=== PATIENT | female | born 1935 | race Caucasian/White ===

== ENCOUNTER 2016-10-19 10:10 | Outpatient (CLI) | payer MEDICARE, OTHER ==
[2016-10-19 14:05] LABS: BASOPHILS % (AUTO) 0.8 %; EOSINOPHILS # (AUTO) 0.2 10^3/uL (0.0-0.7); EOSINOPHILS % (AUTO) 4.6 %; HCT - HEMATOCRIT 39.4 % (37.0-47.0); HGB - HEMOGLOBIN 13.2 g/dL (12.0-16.0); LYMPHOCYTES # (AUTO) 1.3 10^3/uL (1.5-3.5); LYMPHOCYTES % (AUTO) 32.5 %; MEAN CORPUSCULAR HEMOGLOBIN 28.8 pg (27.0-31.0); MEAN CORPUSCULAR HGB CONC 33.6 g/dL (32.0-36.0); MEAN CORPUSCULAR VOLUME 85.8 fL (81.0-99.0); MEAN PLATELET VOLUME 7.4 fL (7.9-10.8); MONOCYTES # (AUTO) 0.4 10^3/uL (0.0-1.0); MONOCYTES % (AUTO) 11.1 %; NEUTROPHILS # (AUTO) 2.1 10^3/uL (1.5-6.6); NUCLEATED RED BLOOD CELLS AUTO 0.1 /100WBC; RED BLOOD COUNT 4.59 10^6/uL (4.20-5.40); RED CELL DISTRIBUTION WIDTH 14.9 % (12.0-15.0)
[2016-10-19 14:18] LABS: ALBUMIN/GLOBULIN RATIO 1.6 (1.0-2.2); BILIRUBIN,TOTAL 0.6 mg/dL (0.2-1.0); BUN - BLOOD UREA NITROGEN 14 mg/dL (6-20); CALCIUM 9.4 mg/dL (8.5-10.3); CARBON DIOXIDE - CO2 32 mmol/L (21-32); CHLORIDE 103 mmol/L (101-111); CHOL/HDL RATIO 3.5 (<4.4); CHOLESTEROL 234 mg/dL; CREATININE 0.8 mg/dL (0.4-1.0); GFR - MDRD 69 (>89); GLUCOSE 85 mg/dL (70-100); HDL CHOLESTEROL 67 mg/dL; LDL/HDL RATIO 2.1 (<4.4); POTASSIUM 4.1 mmol/L (3.5-5.0); SODIUM 140 mmol/L (135-145); TRIGLYCERIDES 137 mg/dL; VLDL CHOLESTEROL 27 mg/dL
== END 2016-10-19 10:11 | disposition home or self-care (01) ==
LOC: LAB.WCP 10:10
PROVIDERS: ATTEND Physician Assistant Medical
DX: E78.5 Hyperlipidemia, unspecified (principal); C50.919 Malignant neoplasm of unspecified site of unspecified female breast
CPT/HCPCS: 36415; 80053; 80061; 85025

== ENCOUNTER 2016-10-27 15:12 | Outpatient (CLI) | payer MEDICARE, OTHER ==
--- NOTE | 2016-10-28 12:47 | Mammography Report ---
DIGITAL SCREENING MAMMOGRAM: 10/27/2016 COMPARISON: 03/15/2015, 02/27/2014, 03/09/2013, 03/21/2012, 03/13/2011, 03/11/2010, 09/30/2009, 04/02, 03/13/2008, 02/22/2007. TECHNIQUE: Routine CC and MLO projections were obtained of the breasts. Bilateral CC, exaggerated CC and MLO projections are obtained. FINDINGS: The breast tissue is heterogeneously dense. There are posttherapeutic changes in the right breast and axilla consistent with the history of breas t cancer. There are no new dominant masses, new architectural distortion or skin thickening or new honeycutt spicious microcalcifications. IMPRESSION: STABLE BENIGN FINDINGS. BIRADS CATEGORY 2-BENIGN FINDINGS. RECOMMENDATION: SUGGEST RETURN TO ROUTINE SCREENING IN 12 MONTHS. STANDARD QUALIFYING STATEMENTS 1. This examination was reviewed with the aid of Computer-Aided Detection (CAD). 2. A negative or benign imaging report should not delay biopsy if clinically suspicious findings are present. Consider surgical consultation if warranted. More than 5% of cancers are not identified by i ing. 3. Dense breasts may obscure an underlying neoplasm. JOB #: [id number] EXT JOB #:[id number]
== END 2016-10-27 15:13 | disposition home or self-care (01) ==
LOC: DI 15:12
PROVIDERS: ATTEND Physician Assistant Medical
DX: Z12.31 Encounter for screening mammogram for malignant neoplasm of breast (principal)
CPT/HCPCS: 77067

== ENCOUNTER 2017-01-01 09:43 | Outpatient (CLI) | payer MEDICARE, OTHER ==
--- NOTE | 2017-01-01 13:30 | DEXA Report ---
DEXA SCAN: 01/01/2017 CLINICAL INDICATION: Postmenopausal. TECHNIQUE: Dual energy x-ray absorptiometry (DXA) was performed on a [employer] system. Regions measured are the AP spine, femoral neck, and, if needed, forearm. COMPARISON: None. In accordance with the International Society for Clinical Densitometry (ISCD) guidelines, data from previous exams may be reanalyzed using current recommendations and techniques. This is done to allow a more accurate basis for comparison with the current study. FINDINGS LUMBAR SPINE DATA: REGION BMD (g/cm/cm) T-SCORE Z-SCORE L1 0.982 -1.2 1.1 L2 1.097 -0.9 1.5 L3 1.188 -0.1 2.3 L4 1.069 -1.1 1.3 TOTAL 1.088 -0.8 1.6 NOTE: All evaluable vertebrae are used for classification. HIP DATA: REGION BMD (g/cm/cm) T-SCORE Z-SCORE Neck 0.799 -1.7 0.8 TOTAL 0.841 -1.3 1.1 NOTE: The femoral neck or total proximal femur, whichever is lowest, is used for classification. IMPRESSION: THE WHO CLASSIFICATION BASED ON THE INTERNATIONAL REFERENCE STANDARD IS OSTEOPENIA. FRACTURE RISK IS INCREASED. RECOMMENDATION: Patients with diagnosis of osteoporosis or osteopenia should have regular bone mineral density assessment. For those eligible for Medicare, routine testing is allowed once every 2 years. Testing frequency can be increased for patients who have rapidly progressing disease or for those who are receiving medical therapy to restore bone mass. COMMENT: World Health Organization (WHO) definitions for osteoporosis and osteopenia: NORMAL BMD: T-score at -1.0 or higher, fracture risk is low. OSTEOPENIA BMD: T-score between -1.0 and -2.5, fracture risk is increased. OSTEOPOROSIS BMD: T-score at -2.5 or lower, fracture risk high. National Osteoporosis Foundation recommends: 1. Obtain adequate dietary calcium (at least 1200 mg per day) and vitamin D (400 -800 international units per day). 2. Participate, as appropriate, in regular weightbearing and muscle- strengthening exercise. 3. Avoid tobacco use and reduce alcohol and caffeine intake. 4. For more detailed information see the website at www.NOF.org. MTDD
== END 2017-01-01 09:44 | disposition home or self-care (01) ==
LOC: DI 09:43
PROVIDERS: ATTEND Physician Assistant Medical
DX: M85.88 Other specified disorders of bone density and structure, other site (principal)
CPT/HCPCS: 77080

== ENCOUNTER 2017-07-16 08:00 | Outpatient (CLI) | payer MEDICARE, OTHER ==
[2017-07-16 15:03] LABS: ALBUMIN 3.9 g/dL (3.2-5.5); ALBUMIN/GLOBULIN RATIO 1.3 (1.0-2.2); ALKALINE PHOSPHATASE 48 IU/L (42-121); ALT ALANINE AMINOTRANSFERASE 19 IU/L (10-60); AST ASPARTATE AMINOTRANSFERASE 29 IU/L (10-42); BUN - BLOOD UREA NITROGEN 16 mg/dL (6-20); CALCIUM 9.1 mg/dL (8.5-10.3); CARBON DIOXIDE - CO2 30 mmol/L (21-32); CHLORIDE 102 mmol/L (101-111); CHOL/HDL RATIO 3.4 (<4.4); CHOLESTEROL 240 mg/dL; CREATININE 0.7 mg/dL (0.4-1.0); GFR - MDRD 81 (>89); GLUCOSE 99 mg/dL (70-100); HDL CHOLESTEROL 70 mg/dL; LDL CHOLESTEROL,CALCULATED 153 mg/dL; LDL/HDL RATIO 2.2 (<4.4); SODIUM 141 mmol/L (135-145); TOTAL PROTEIN 6.9 g/dL (6.7-8.2); VLDL CHOLESTEROL 17 mg/dL
== END 2017-07-16 08:01 | disposition home or self-care (01) ==
LOC: LAB.WCP 08:00
PROVIDERS: ATTEND Physician Assistant Medical
DX: E78.5 Hyperlipidemia, unspecified (principal)
CPT/HCPCS: 36415; 80053; 80061; 83721

== ENCOUNTER 2017-10-29 10:59 | Outpatient (CLI) | payer MEDICARE, OTHER ==
--- NOTE | 2017-11-01 10:00 | Mammography Report ---
Reason: SCREENING MAMMO Procedure Date: 10/29/2017 Accession Number: [id number] / [id number] Procedure: AARON - Screening Mammo Dig Bilat CPT Code: FULL RESULT: EXAM: Screening Mammo Dig Bilat DATE: 10/29/2017 11:35 AM CLINICAL HISTORY: 82-year-old female with history of right breast cancer status post lumpectomy and chemoradiation. TECHNIQUE: Bilateral CC and MLO views were obtained. COMPARISON: 10/27/2016, 03/15/2015, 02/27/2014, 03/09/2013. FINDINGS: The breasts demonstrate heterogeneously dense fibroglandular parenchyma bilaterally. Postsurgical and posttreatment changes are seen in the right breast are stable. No suspicious masses, clustered microcalcifications, or regions of architectural distortion are identified. IMPRESSION: Benign findings RECOMMENDATION: Routine annual screening unless otherwise clinically indicated. BIRADS CATEGORY 2: Benign findings STANDARD QUALIFYING STATEMENTS: 1. This examination was not reviewed with the aid of Computer-Aided Detection (CAD). 2. A negative or benign imaging report should not delay biopsy if clinically suspicious findings are present. Consider surgical consultation if warrented. More than 5% of cancers are not identified by imaging. 3. Dense breasts may obscure an underlying neoplasm.
== END 2017-10-29 11:00 | disposition home or self-care (01) ==
LOC: DI 10:59
PROVIDERS: ATTEND Radiology Diagnostic Radiology
DX: Z12.31 Encounter for screening mammogram for malignant neoplasm of breast (principal); Z08 Encounter for follow-up examination after completed treatment for malignant neoplasm; Z85.3 Personal history of malignant neoplasm of breast
CPT/HCPCS: 77067

== ENCOUNTER 2018-07-13 09:00 | Outpatient (CLI) | payer MEDICARE, OTHER ==
[2018-07-13 12:39] LABS: BASOPHILS % (AUTO) 0.8 %; EOSINOPHILS # (AUTO) 0.1 10^3/uL (0.0-0.7); EOSINOPHILS % (AUTO) 1.6 %; HGB - HEMOGLOBIN 13.5 g/dL (12.0-16.0); LYMPHOCYTES # (AUTO) 1.3 10^3/uL (1.5-3.5); LYMPHOCYTES % (AUTO) 36.4 %; MEAN CORPUSCULAR HEMOGLOBIN 28.5 pg (27.0-31.0); MEAN CORPUSCULAR HGB CONC 33.3 g/dL (32.0-36.0); MEAN CORPUSCULAR VOLUME 85.6 fL (81.0-99.0); MEAN PLATELET VOLUME 7.6 fL (7.9-10.8); MONOCYTES # (AUTO) 0.4 10^3/uL (0.0-1.0); MONOCYTES % (AUTO) 10.7 %; NEUTROPHILS # (AUTO) 1.8 10^3/uL (1.5-6.6); NEUTROPHILS % (AUTO) 50.5 %; PLT - PLATELET COUNT 151 10^3/uL (130-450); RED BLOOD COUNT 4.73 10^6/uL (4.20-5.40); RED CELL DISTRIBUTION WIDTH 14.5 % (12.0-15.0); WHITE BLOOD COUNT 3.5 x10^3/uL (4.8-10.8)
[2018-07-13 12:42] LABS: ALBUMIN 4.3 g/dL (3.2-5.5); ALBUMIN/GLOBULIN RATIO 1.7 (1.0-2.2); ALKALINE PHOSPHATASE 48 IU/L (42-121); ALT ALANINE AMINOTRANSFERASE 14 IU/L (10-60); AST ASPARTATE AMINOTRANSFERASE 28 IU/L (10-42); BILIRUBIN,TOTAL 0.6 mg/dL (0.2-1.0); BUN - BLOOD UREA NITROGEN 15 mg/dL (6-20); CALCIUM 9.3 mg/dL (8.5-10.3); CARBON DIOXIDE - CO2 29 mmol/L (21-32); CHLORIDE 102 mmol/L (101-111); CHOLESTEROL 227 mg/dL; CREATININE 0.9 mg/dL (0.4-1.0); GFR - MDRD 60 (>89); GLUCOSE 87 mg/dL (70-100); HDL CHOLESTEROL 75 mg/dL; LDL CHOLESTEROL,CALCULATED 129 mg/dL; LDL/HDL RATIO 1.7 (<4.4); SODIUM 138 mmol/L (135-145); TOTAL PROTEIN 6.8 g/dL (6.7-8.2); VLDL CHOLESTEROL 23 mg/dL
== END 2018-07-13 09:01 | disposition home or self-care (01) ==
LOC: LAB.WCP 09:00
PROVIDERS: ATTEND Physician Assistant Medical
DX: M81.0 Age-related osteoporosis without current pathological fracture (principal); M89.9 Disorder of bone, unspecified; E78.5 Hyperlipidemia, unspecified; C50.919 Malignant neoplasm of unspecified site of unspecified female breast
CPT/HCPCS: 36415; 80053; 80061; 83721; 84443; 85025

== ENCOUNTER 2018-11-02 09:57 | Outpatient (CLI) | payer MEDICARE, OTHER ==
--- NOTE | 2018-11-03 09:50 | Mammography Report ---
Reason: ROUTINE MAMMO Procedure Date: 11/02/2018 Accession Number: [id number] / [id number] Procedure: AARON - Screening Mammo w/Daniel CPT Code: FULL RESULT: EXAM: Screening Mammo w/Daniel DATE: 11/02/2018 10:45 AM CLINICAL HISTORY: Screening encounter. Personal history of breast cancer status post right breast lumpectomy in 2008. History of hormone use, 1970 10/10/2008. TECHNIQUE: (B) - Bilateral CC and MLO views were obtained. Right laterally exaggerated view was obtained. COMPARISON: 10/29/2017 through 02/27/2014. PARENCHYMAL PATTERN: (D) - The breast(s) demonstrate(s) heterogeneously dense fibroglandular parenchyma. FINDINGS: Postsurgical changes are seen in the right breast without concerning interval change, typically benign. There are no suspicious masses, calcifications, or areas of distortion. IMPRESSION: Benign findings. BI-RADS category 2. RECOMMENDATION: (ANNUAL) - Recommend routine annual screening mammography. BI-RADS CATEGORY: (2) - Benign Findings. STANDARD QUALIFYING STATEMENTS: 1. This examination was not reviewed with the aid of Computer-Aided Detection (CAD). 2. A negative or benign imaging report should not preclude biopsy if clinically suspicious findings are present. 3. Dense breasts may obscure an underlying neoplasm. 4. This examination was reviewed with the aid of 3D breast imaging (tomosynthesis).
== END 2018-11-02 09:58 | disposition home or self-care (01) ==
LOC: DI 09:57
DX: Z12.31 Encounter for screening mammogram for malignant neoplasm of breast (principal); Z08 Encounter for follow-up examination after completed treatment for malignant neoplasm; Z85.3 Personal history of malignant neoplasm of breast
CPT/HCPCS: 77063; 77067

== ENCOUNTER 2019-01-03 10:45 | Outpatient (CLI) | payer MEDICARE, OTHER ==
--- NOTE | 2019-01-09 12:03 | DEXA Report ---
Reason: BONE DISORDER Procedure Date: 01/03/2019 Accession Number: [id number] / [id number] Procedure: DEX - Dexa Spine and/or Hip CPT Code: Final Report FULL RESULT: EXAM: Dexa Spine and/or Hip DATE: 01/03/2019 11:22 AM CLINICAL HISTORY: BONE DISORDER. OSTEOPENIA. TECHNIQUE: Dual energy x-ray absorptiometry (DXA) was performed on a [employer] System. Regions measured are the AP Spine, femoral neck, and if needed forearm. COMPARISON: 01/01/2017. In accordance with the International Society for Clinical Densitometry (ISCD) guidelines, data from previous exams may be reanalyzed using current recommendations and techniques. This is done to allow a more accurate basis for comparison with the current study. FINDINGS: The data for the lumbar spine is as follows: BMD (g/cm/cm) T-SCORE Z-SCORE REGION L1 0.918 -1.8 0.6 L2 1.239 0.3 2.7 L3 L4 1.098 -0.9 1.6 TOTAL 1.086 -0.7 1.7 NOTE: All evaluable vertebrae are used for classification The data for the hip is as follows: BMD (g/cm/cm) T-SCORE Z-SCORE REGION Neck 0.823 -1.5 1.0 TOTAL 0.837 -1.4 1.1 NOTE: The femoral neck or total proximal femur, whichever is lowest, is used for classification. DXA RESULTS SUMMARY: Spine SCAN DATE AGE BMD CHANGE VS CHANGE VS PREVIOUS PREVIOUS % [birth year]2019 [age] 1.086 0.032* 3.0* 01[birth year]01/2017 [age] 1[age]054 * Denotes significant change at the 95% confidence level. Denotes dissimilar scan types or analysis methods. DXA RESULTS SUMMARY: Hip SCAN DATE AGE BMD CHANGE VS CHANGE VS PREVIOUS PREVIOUS % [birth year]2019 [age] 0.837 -0.004 -0.5 01/01/2017 [age] 0.841 * Denotes significant change at the 95% confidence level. Denotes dissimilar scan types or analysis methods. IMPRESSION: 1. THE WHO CLASSIFICATION BASED ON THE INTERNATIONAL REFERENCE STANDARD IS OSTEOPENIA, REFERENCE HIP NECK RESULTS. THE FRACTURE RISK IS INCREASED. 2. THERE MAY BE A STATISTICALLY SIGNIFICANT IMPROVEMENT IN BONE MARROW DENSITY SINCE THE PRIOR EXAM, REFERENCE SPINE RESULTS. RECOMMENDATION: Patients with diagnosis of osteoporosis or osteopenia should have regular bone mineral density assessment. For those eligible for Medicare, routine testing is allowed once every 2 years. Testing frequency can be increased for patients who have rapidly progressing disease or for those who are receiving medical therapy to restore bone mass. COMMENT: World Health Organization (WHO) definitions for osteoporosis and osteopenia: NORMAL BMD: T-score at -1.0 or higher, fracture risk is low OSTEOPENIA BMD: T-score between -1.0 and -2.5, fracture risk is increased. OSTEOPOROSIS BMD: T-score at -2.5 or lower, fracture risk is high. National Osteoporosis Foundation recommends: 1. Obtain adequate dietary calcium (at least 1200 mg per day) and vitamin D (400-800 international units per day). 2. Participate, as appropriate, in regular weightbearing and muscle-strengthening exercise. 3. Avoid tobacco use and reduce alcohol and caffeine intake. 4. For more detailed information see the website at www.NOF.org.
== END 2019-01-03 10:46 | disposition home or self-care (01) ==
LOC: DI 10:45
PROVIDERS: ATTEND Physician Assistant Medical
DX: M85.88 Other specified disorders of bone density and structure, other site (principal)
CPT/HCPCS: 77080

== ENCOUNTER 2019-11-30 07:05 | Outpatient (CLI) | payer MEDICARE, OTHER ==
[2019-11-30 12:07] LABS: ALBUMIN/GLOBULIN RATIO 1.5 (1.0-2.2); ALKALINE PHOSPHATASE 53 IU/L (42-121); ALT ALANINE AMINOTRANSFERASE 11 IU/L (10-60); AST ASPARTATE AMINOTRANSFERASE 19 IU/L (10-42); BILIRUBIN,TOTAL 0.7 mg/dL (0.2-1.0); BUN - BLOOD UREA NITROGEN 15 mg/dL (6-20); CALCIUM 9.4 mg/dL (8.5-10.3); CARBON DIOXIDE - CO2 30 mmol/L (21-32); CHLORIDE 99 mmol/L (101-111); CHOL/HDL RATIO 2.8 (<4.4); CHOLESTEROL 195 mg/dL; CREATININE 0.8 mg/dL (0.4-1.0); GLUCOSE 89 mg/dL (70-100); HDL CHOLESTEROL 69 mg/dL; LDL CHOLESTEROL,CALCULATED 112 mg/dL; LDL/HDL RATIO 1.6 (<4.4); SODIUM 140 mmol/L (135-145); TOTAL PROTEIN 6.7 g/dL (6.7-8.2); VLDL CHOLESTEROL 14 mg/dL
[2019-11-30 12:15] LABS: BASOPHILS % (AUTO) 1.1 %; EOSINOPHILS # (AUTO) 0.1 10^3/uL (0.0-0.7); EOSINOPHILS % (AUTO) 3.4 %; HGB - HEMOGLOBIN 12.7 g/dL (12.0-16.0); LYMPHOCYTES # (AUTO) 1.2 10^3/uL (1.5-3.5); LYMPHOCYTES % (AUTO) 32.9 %; MEAN CORPUSCULAR HEMOGLOBIN 27.7 pg (27.0-31.0); MEAN CORPUSCULAR HGB CONC 31.5 g/dL (32.0-36.0); MEAN CORPUSCULAR VOLUME 87.8 fL (81.0-99.0); MEAN PLATELET VOLUME 9.3 fL (7.9-10.8); MONOCYTES # (AUTO) 0.3 10^3/uL (0.0-1.0); MONOCYTES % (AUTO) 9.1 %; NEUTROPHILS # (AUTO) 1.9 10^3/uL (1.5-6.6); NEUTROPHILS % (AUTO) 53.2 %; PLT - PLATELET COUNT 131 10^3/uL (130-450); RED BLOOD COUNT 4.59 10^6/uL (4.20-5.40); RED CELL DISTRIBUTION WIDTH 14.1 % (12.0-15.0); WHITE BLOOD COUNT 3.5 x10^3/uL (4.8-10.8)
== END 2019-11-30 07:06 | disposition home or self-care (01) ==
LOC: LAB.WCP 07:05
PROVIDERS: ATTEND Physician Assistant Medical
DX: E78.5 Hyperlipidemia, unspecified (principal)
CPT/HCPCS: 36415; 80053; 80061; 83721; 84443; 85025

== ENCOUNTER 2019-12-22 12:48 | Outpatient (CLI) | payer MEDICARE, OTHER ==
--- NOTE | 2019-12-22 13:53 | Ultrasound Report ---
PROCEDURE: Head or Neck Soft Tissue INDICATIONS: JAW ANOMALY TECHNIQUE: Real time scanning was performed of the neck region of interest, with image documentation . COMPARISON: None. FINDINGS: No soft tissue neck abnormality seen bilaterally. No enlarged lymph nodes identified in th e region of clinical interest. No soft tissue edema or fluid collections identified in the area of cl inical interest. IMPRESSION: No sonographic abnormality identified in the area of clinical interest at the level of the right subm andibular gland. Reviewed by: Oxana Shukla MD, PhD on 12/22/2019 1:52 PM PST Approved by: Oxana Shukla MD, PhD on 12/22/2019 1:52 PM PST Station ID: [id number]
== END 2019-12-22 12:49 | disposition home or self-care (01) ==
LOC: DI 12:48
PROVIDERS: ATTEND Physician Assistant Medical
DX: M26.9 Dentofacial anomaly, unspecified (principal)
CPT/HCPCS: 76536

== ENCOUNTER 2020-03-18 12:56 | Outpatient (CLI) | payer MEDICARE, OTHER ==
--- NOTE | 2020-03-20 12:00 | Mammography Report ---
BILATERAL DIGITAL SCREENING MAMMOGRAM: 03/18/2020 CLINICAL: Routine screening. Personal history of right breast cancer. Comparison is made to exams dated: 11/02/2018 mammogram, 10/29/2017 mammogram, 10/27/2016 mammogram, 03/15/2015 mammogram, 02/27/2014 mammogram, and 03/09/2013 mammogram - [facility]. The t issue of both breasts is heterogeneously dense. This may lower the sensitivity of mammography. There are benign post operative findings in the right breast. No significant masses, calcifications, or other findings are seen in either breast. There has been no significant interval change. IMPRESSION: BENIGN There is no mammographic evidence of malignancy. A 1 year screening mammogram is recommended. This exam was interpreted at Station ID: [id number]. NOTE: For mammograms, a report in lay terms will be sent to the patient. Approximately 15% of breast malignancies will not be visualized mammographically. In the management of a palpable breast mass, a negative mammogram must not discourage biopsy of a clinically suspicious lesion. Electronically Signed By: iDlshad hylton/irisrad:03/18/2020 17:39:34 ACR BI-RADS Category 2: Benign Finding(s) 3342F PARENCHYMAL PATTERN: (D) - The breast(s) demonstrate(s) heterogeneously dense fibroglandular gerald hussein. BI-RADS CATEGORY: (2) - 2 RECOMMENDATION: (ANNUAL) - Recommend routine annual screening mammography. [id number] 1 year screening LATERALITY: (B)
== END 2020-03-18 12:57 | disposition home or self-care (01) ==
LOC: DI.N 12:56
DX: Z12.31 Encounter for screening mammogram for malignant neoplasm of breast (principal); Z85.3 Personal history of malignant neoplasm of breast

== ENCOUNTER 2020-08-15 13:42 | Outpatient (CLI) | payer MEDICARE, OTHER | END 2020-08-15 13:43 | disposition short-term general hospital (02) | LOC: EMS 13:42 | DX: R07.9 Chest pain, unspecified (principal); R22.2 Localized swelling, mass and lump, trunk; R14.0 Abdominal distension (gaseous) | CPT/HCPCS: A0425; A0429 ==

== ENCOUNTER 2020-09-05 15:29 | Outpatient (CLI) | payer MEDICARE, OTHER ==
--- NOTE | 2020-09-05 17:00 | Ultrasound Report ---
PROCEDURE: Head or Neck Soft Tissue INDICATIONS: NECK SWELLING MASS OR LUMP TECHNIQUE: Real time scanning was performed of the neck region of interest, with image documentation . COMPARISON: 12/22/2019. FINDINGS: In the area of palpable abnormality involving the left neck, there are multiple enlarged an d abnormal lymph nodes measuring up to 20.8 x 0.6 x 2.0 cm. There is loss of the fatty hilum and segun ical thickening. These appear new since 12/22/2019. 7 mm right cervical lymph node also noted, with l oss of fatty hilum. IMPRESSION: Multiple pathologically enlarged left-sided cervical lymph nodes. As clinically warranted, dedicated CT neck with contrast can be performed for further assessment. Findings suggestive of metastatic dise ase, or lymphoma. Reviewed by: Pola Peralta MD on 09/05/2020 4:58 PM PDT Approved by: Pola Peralta MD on 09/05/2020 4:58 PM PDT Station ID: [id number]
== END 2020-09-05 15:30 | disposition home or self-care (01) ==
LOC: DI 15:29
PROVIDERS: ATTEND Family Medicine
DX: R59.0 Localized enlarged lymph nodes (principal)

== ENCOUNTER 2020-09-10 12:14 | Outpatient (CLI) | payer MEDICARE, OTHER ==
--- NOTE | 2020-09-10 14:12 | CARDIAC PROCEDURE NOTE ---
Stress Test Report Service Date: 09/10/20 Service Time: 12:30 Ordering Provider: Sam Khan MD Indication for Test: Acute chest pain and possible pre-operative risk stratification. Significant Medical History: The patient is an 85-yr old woman with history of breast cancer several years ago, treated with lumpectomy, adjuvant chemotherapy and radiation treatment, who 2-3 weeks ago noted a painless swollen nodule in her left supraclavicular region, for which she sought evaluation. Shortly after being seen, she experienced an episode of central substernal chest pain at rest, that radiated around her left side to her upper back and into her left arm, without associated dyspnea, diaphoresis or nausea, but lasting over an hour. She did not seek immediate attention but at a follow up encounter an EKG was found to be nonspecifically abnormal. Since then the discomfort has recurred at a lower level periodically, not associated with exertion, possibly worse at night and more typical in character to her prior GI discomfort. Her main exertional activity is gardening, and she has not seen a decrement in her ability to continue this activity. She is being scheduled to see a general surgeon shortly, to evaluate her for lymph node biopsy. Cardiac Risk Factors: Her primary risk factor is advanced age; she denies history of hypertension, diabetes, hyperlipidemia, or cigarette smoking ever. She denies history of any type of ASCVD in her primary relatives. Type of Stress Test: ETT with Myocardial Perfusion Imaging Procedure: -Exercise Treadmill Test- After signing informed consent, the patient performed treadmill exercise using a Modified Rigoberto protocol. The patient exercised for 6 minutes 54 seconds and achieved a peak heart rate of 140 (121 percent predicted maximum heart rate for age), and an estimated workload of 4.0 METS. The test was terminated due to achieving target heart rate, fatigue and pain in both forearms. Resting heart rate: 82 Peak heart rate: 140 Normal response to exercise. Resting BP: 130/56 Peak BP: 212/64 Hypertensive BP response to exercise. Rhythm during exercise: Sinus rhythm throughout. Symptoms: She did not experience the type of chest discomfort that prompted evaluation, though did have bilateral forearm pain. EKG at rest showed normal sinus rhythm, with abnormal left axis deviation and right bundle branch block, with resting inferior ST elevation of 1 mm and isoelectric anterolateral ST segments. EKG at peak stress showed no ST depression diagnostic for ischemia by EKG criteria. In Recovery HR and BP came down towards normal resting baseline levels. Nuclear imaging performed at rest and with stress and will be reported separately. IGilbert MD, was present throughout this treadmill stress test and supervised it in its entirety. Summary: 1) Exercise tolerance was probably fair, as evidenced by ability to exercise into stage III of modified Rigoberto protocol. No AARON available for her age nor for modified Rigoberto protocol. 2) Abnormal resting EKG. 3) Adequate level of exercise was achieved on this treadmill stress test. 4) Abnormal hypertensive BP response to exercise. 5) No ischemic changes by EKG criteria were seen at peak exercise. 6) Nuclear imaging revealed fully normal perfusion at rest and with stress, indicating no evidence of prior infarct or inducible ischemia. Left ventricular size and systolic function were normal. 7) Low risk study results.
--- NOTE | 2020-09-10 18:15 | Nuclear Medicine Report ---
PROCEDURE: Rest and exercise myocardial perfusion SPECT with gated imaging and ejection fraction INDICATIONS: CHEST PAIN RADIOPHARMACEUTICAL: 13.3 mCi Tc-99m Myoview IV at rest and 41.3 mCi Tc-99m Myoview IV at peak exerc ise. [id number] was performed. TECHNIQUE: Radiopharmaceutical was injected at peak stress test, and also at rest. SPECT images wer e obtained. SPECT myocardial perfusion images were displayed in short axis, horizontal long axis, an d vertical long axis views. Gated images were reviewed using Auto[employer] software. COMPARISON: None available. FINDINGS: Raw data: There is good myocardial labeling by radiotracer. No significant motion artifacts. Lung- to-heart ratio is 0.28 (normal is less than 0.46 for tetrafosmin tracer). Left ventricle function: Gated images demonstrate normal left ventricle wall thickening. No segment al wall motion abnormality. No transient ischemic dilation; TID is 0.94 (normal less than 1.30). Th e left ventricle resting end-diastolic volume is normal.. Left ventricle stress ejection fraction is >70%; normal values are above 45%. Myocardial perfusion: There is normal distribution of activity in the left and right ventricular ray cardium. No fixed or reversible perfusion defects. IMPRESSION: 1. Normal myocardial perfusion images. 2. Normal left ventricular volume and systolic function. 3. Please correlate with stress EKG result. PQRS ATTESTATIONS: Measure 322 - Is this imaging test primarily performed on a low-risk surgery patient for preoperative evaluation within 30 days preceding their low-risk non-cardiac surgery? Low-risk surgery is defined as cardiac or myocardial infarction less than 1%, including (but not limited to) endoscopic pr ocedures, superficial procedures, cataract surgery, and excisional breast surgery: Answer: No Measure 323 - Is this imaging test performed primarily for the monitoring of an asymptomatic patient who had percutaneous coronary intervention on the visit date or within 2 years of the visit date? An swer: No Measure 324 - Is this imaging test performed primarily for the initial detection and risk assessment on an asymptomatic, low coronary heart disease patient? Low CHD risk definition = clinicians should consider the maximum number of available patient factors used to estimate risk based on [place] (A TP III criteria), typically age, gender, diabetes, smoking status, and use of blood pressure medicati on, and integrate age appropriate estimates for missing elements, such as LDL or standard blood press ure. Answer: No Reviewed by: Navjot Rose MD on 09/10/2020 6:13 PM PDT Approved by: Navjot Rose MD on 09/10/2020 6:13 PM PDT Station ID: [id number]
== END 2020-09-10 12:15 | disposition home or self-care (01) ==
LOC: DI 12:14
PROVIDERS: ATTEND Family Medicine
DX: R94.31 Abnormal electrocardiogram [ECG] [EKG] (principal); R03.0 Elevated blood-pressure reading, without diagnosis of hypertension
CPT/HCPCS: 78452; 93017; A9500

== ENCOUNTER 2020-09-12 12:22 | Outpatient (CLI) | payer MEDICARE, OTHER ==
[2020-09-12] MEDS ORDERED: IOPAMIDOL-300 100 ML VIAL ONE (13:17)
[2020-09-12] MEDS ORDERED: IOPAMIDOL-300 100 ML VIAL IVP ONE (13:54)
--- NOTE | 2020-09-12 14:01 | CT Report ---
PROCEDURE: SOFT TISSUE NECK W INDICATIONS: ABN LYMPH NODES LT SIDE CONTRAST: IV CONTRAST: Isovue 300 ml: 80 PO CONTRAST: *NO PO CONTRAST TECHNIQUE: After the administration of intravenous contrast, 3.0 mm axial sections acquired from the sella to th e aortic arch. Additional oblique axial 3.0 mm sections acquired through the pharynx. 3 mm thick co mo reformats were generated. For radiation dose reduction, the following was used: automated exp osure control, adjustment of mA and/or kV according to patient size. COMPARISON: None. FINDINGS: Image quality: The examination is limited by very early arterial phase of contrast administration. Lymph nodes: There are numerous threshold enlarged lymph nodes in left cervical levels 3 and 4 along with left supraclavicular, subpectoral, and axillary lymphadenopathy. No or definite lymphadenopathy in the right neck 4 right upper chest. Vessels: Visualized vasculature appears patent. Neck spaces: The oropharynx, nasopharynx, and pharynx demonstrate no mucosal lesions. The vocal cor ds, false vocal cords, pyriform sinuses, epiglottis, vallecula, and tongue base all appear normal. E xtramucosal spaces appear unremarkable. Glands: The parotid and submandibular glands appear normal. The thyroid is normal in size and there are no incidental findings. Miscellaneous: Visualized brain and orbits appear normal. Lung apices appear clear. Superficial so ft tissues appear normal. Bones: No suspicious bony lesions. Visualized sinuses and mastoids appear unremarkable. IMPRESSION: Extensive left cervical, subclavicular, subpectoral, and axillary lymphadenopathy. Findings are consi stent with either metastatic disease or lymphoma. Obtaining a tissue diagnosis is recommended, if not already performed. CLINICAL RECOMMENDATION STATEMENTS: In patients <35 years with an ITN detected on CT, MRI, or extrathyroidal ultrasound, the Committee re commends further evaluation with dedicated thyroid ultrasound if the nodule is ?1 cm and has no suspi cious imaging features, and if the patient has normal life expectancy. In patients ?35 years with an ITN detected on CT, MRI, or extrathyroidal ultrasound, the Committee re commends further evaluation with dedicated thyroid ultrasound if the nodule is ?1.5 cm and has no mark picious imaging features, and if the patient has normal life expectancy. (ACR, 2014) Reviewed by: Jeff Connor MD on 09/12/2020 2:00 PM PDT Approved by: Jeff Connor MD on 09/12/2020 2:00 PM PDT Station ID: [id number]
== END 2020-09-12 12:23 | disposition home or self-care (01) ==
LOC: LAB 12:22 → DI 12:23
PROVIDERS: ATTEND Family Medicine
DX: R59.0 Localized enlarged lymph nodes (principal)
CPT/HCPCS: 36415; 70491; 82565; Q9967

== ENCOUNTER 2020-09-20 11:55 | Outpatient (CLI) | payer MEDICARE, OTHER ==
[2020-09-20] MEDS ORDERED: IOVERSOL 320 50 ML VIAL ONE (12:16)
[2020-09-20] MEDS ORDERED: IOPAMIDOL-300 100 ML VIAL ONE (12:16)
[2020-09-20 12:49] LABS: ALBUMIN 4.1 g/dL (3.2-5.5); ALBUMIN/GLOBULIN RATIO 1.4 (1.0-2.2); BILIRUBIN,TOTAL 0.7 mg/dL (0.2-1.0); CALCIUM 9.6 mg/dL (8.5-10.3); CREATININE 0.9 mg/dL (0.4-1.0); POTASSIUM 4.4 mmol/L (3.5-5.0)
[2020-09-20] MEDS ORDERED: IOPAMIDOL-300 100 ML VIAL IVP ONE (13:33)
[2020-09-20] MEDS ORDERED: IOVERSOL 320 50 ML VIAL PO ONE (13:34)
--- NOTE | 2020-09-20 14:26 | CT Report ---
PROCEDURE: Abdomen/Pelvis W INDICATIONS: ABD PAIN CONTRAST: IV CONTRAST: Isovue 300 ml: 90 PO CONTRAST: Optiray 320 ml50 TECHNIQUE: After the administration of oral and IV contrast, 5 mm thick sections acquired from the diaphragms to the symphysis. 5 mm thick coronal and sagittal reformats were acquired. For radiation dose reducti on, the following was used: automated exposure control, adjustment of mA and/or kV according to lynne ent size. COMPARISON: None. FINDINGS: Image quality: Excellent. ABDOMEN: Lung bases: Lung bases are clear. Heart size is normal. Solid organs: Liver is enlarged measuring 17.4 cm. Multifocal areas of low attenuation consistent wi th cysts are present the largest superiorly measuring 3.8 x 3.6 cm. The spleen is at the upper limits of normal in size measuring 11.7 cm.. Gallbladder is unremarkable. Biliary system is non dilated. Pancreas enhances normally. No adrenal nodules. Kidneys demonstrate normal size and enhancement, w ithout hydronephrosis. Peritoneum and bowel: Bowel loops demonstrate normal wall thickness and caliber. No free fluid or a ir. Nodes and vessels: There is a confluent soft tissue mass encasing the aorta as well as portions of th e inferior vena cava measuring approximately 5.7 cm AP by 7.7 cm transverse by 12.0 cm craniocaudal.. It extends inferiorly to the level of the iliac bifurcation and begins immediately superior to the celiac axis origin. Additional appearance of soft tissue mass is noted anterior to this confluent per iaortic mass measuring approximately 4.9 x 10.0 x 10.8 cm. Ill-defined soft tissue mass is also noted along the medial aspect of the stomach and periportal region measuring approximately 5.1 x 8.4 cm. A vivian and inferior vena cava are normal in size. Miscellaneous: No ventral hernias. PELVIS: Genitourinary: Bladder wall thickness is normal. Miscellaneous: No inguinal hernias or adenopathy. Bones: No suspicious bony lesions. No vertebral body compression fractures. IMPRESSION: 1. Confluent soft tissue masses within the abdomen as described above. Overall appearance is concerni ng for malignancy such as lymphoma. 2. Multiple foci of low-attenuation lesions within the liver most consistent with cysts. 3. Hepatomegaly. 4. Spleen is at the upper limits of normal in size. Reviewed by: Lluvia Zaidi MD on 09/20/2020 2:24 PM PDT Approved by: Lluvia Zaidi MD on 09/20/2020 2:24 PM PDT Station ID: [id number]
== END 2020-09-20 11:56 | disposition home or self-care (01) ==
LOC: DI 11:55
PROVIDERS: ATTEND Physician Assistant Medical
DX: R19.09 Other intra-abdominal and pelvic swelling, mass and lump (principal); K76.9 Liver disease, unspecified; R16.0 Hepatomegaly, not elsewhere classified; R10.9 Unspecified abdominal pain
CPT/HCPCS: 36415; 74177; 80053; Q9967

== ENCOUNTER 2020-09-25 09:01 | Day surgery (SDC) | payer MEDICARE, OTHER ==
[~2020-09-25 09:01] MED LIST: LACTATED RINGERS 1,000 ML IV ONE
[2020-09-25] MEDS ORDERED: LIDOCAINE 1% 50 ML MDV ONE (09:51)
[2020-09-25] MEDS ORDERED: BUPIVACAINE 0.5%-EPI 1:200000 PF 30 ML VIAL ONE (09:51)
[2020-09-25] MEDS ORDERED: LIDOCAINE 1% 50 ML MDV SUBQ ONE ×2 (09:56)
[2020-09-25] MEDS ORDERED: BUPIVACAINE 0.5%-EPI 1:200000 PF 30 ML VIAL SUBQ ONE ×2 (09:56)
--- NOTE | 2020-09-25 09:56 | ANESTHESIA ---
Pre-Anesthesia VS, & Labs - Diagnosis L neck lymphadenopathy - Procedure L lymph node dissection Vital Signs: Temp Pulse Resp BP Pulse Ox 36.8 C 84 19 144/69 H 98 09/25/20 09:14 09/25/20 09:14 09/25/20 09:14 09/25/20 09:14 09/25/20 09:14 Height: 5 ft 1 in Weight (kg): 44 kg Body Mass Index: 18.3 BMI Classification: Underweight - NPO >8 hours, Other (NPO solids >8hrs, 4oz black coffee 0630) - Is Patient ?: No Home Medications and Allergies Home Medications: Ambulatory Orders Omeprazole Magnesium [Prilosec] 20 mg PO DAILY 09/24/20 Red Yeast Rice 09/25/20 Thera Tears 09/25/20 Biotin 2 cap PO DAILY 09/14/12 Cholecalciferol (Vitamin D3) [Vitamin D3] 5,000 unit PO DAILY 09/14/12 Cranberry Fruit [Cranberry] 400 mg PO DAILY 09/14/12 Lactobacillus Acidophilus [Acidophilus Lactobacillus] 1 each PO DAILY 09/14/12 Omeprazole Magnesium [Prilosec] 20 mg PO DAILY 09/24/20 Red Yeast Rice 09/25/20 Thera Tears 09/25/20 Allergies/Adverse Reactions: Allergies Allergy/AdvReac Type Severity Reaction Status Date / Time Sulfa (Sulfonamide Allergy Severe Hives Verified 09/25/20 09:25 Antibiotics) morphine Allergy Itching Verified 09/25/20 09:25 Anes History & Medical History - Anesthetic History Anesthesia Complications: reports: No previous complications Family history of Anesthesia Complications: Denies Family history of Malignant Hyperthermia: Denies - Medical History Cardiovascular: reports: High cholesterol Pulmonary: reports: None Gastrointestinal: reports: None Urinary: reports: Chronic bladder infection Musculoskeletal: reports: Osteoporosis Endocrine/Autoimmune: reports: None Skin: reports: None - Surgical History General: reports: Appendectomy Eyes Ears Nose Throat (EENT): reports: Tonsil/Adenoidectomy Gynecologic: reports: Tubal ligation, Hysterectomy Exam General: Alert, Oriented x3, Cooperative Dental: WNL Mouth Openin Fingerbreadth Neck Mobility: Normal Mallampati classification: I Respiratory: Lungs clear Cardiovascular: Regular rate Plan Anesthesia Type: General Consent for Procedure(s) Verified and Reviewed: Yes Code Status: Attempt Resuscitation ASA classification: 3-Severe systemic disease Is this case an emergency?: No
[2020-09-25] MEDS ORDERED: fentaNYL 100 MCG/2 ML VIAL IVP PRN (09:59)
[2020-09-25] MEDS ORDERED: ePHEDrine 50 MG/ML VIAL IVP PRN (09:59)
[2020-09-25] MEDS ORDERED: NALOXONE 0.4 MG/ML VIAL IVP PRN (09:59)
[2020-09-25] MEDS ORDERED: ATROPINE ABBOJECT 1 MG/10 ML SYRINGE IVP PRN (09:59)
[2020-09-25] MEDS ORDERED: ONDANSETRON 4 MG/2 ML VIAL IVP PRN (09:59)
[2020-09-25] MEDS ORDERED: METOCLOPRAMIDE 10 MG/2 ML VIAL IVP PRN (09:59)
[2020-09-25] MEDS ORDERED: LACTATED RINGERS 1,000 ML IV SCH (10:00)
[2020-09-25] MEDS ORDERED: fentaNYL 100 MCG/2 ML VIAL ONE (10:36)
[2020-09-25] MEDS ORDERED: LIDOCAINE-MPF 2% 5 ML VIAL ONE (10:36)
[2020-09-25] MEDS ORDERED: PROPOFOL 200 MG/20 ML VIAL IVP ONE (10:36)
[2020-09-25] MEDS ORDERED: MIDAZOLAM 2 MG/2 ML VIAL ONE (10:36)
[2020-09-25] MEDS ORDERED: ONDANSETRON 4 MG/2 ML VIAL ONE (11:07)
[2020-09-25] MEDS ORDERED: DEXAMETHASONE 4 MG/ML VIAL ONE (11:08)
[2020-09-25] MEDS ORDERED: LACTATED RINGERS 1,000 ML IV ONE (11:39)
[2020-09-25] MEDS ORDERED: HYDROcod/ACETAM 5/325 MG TABLET PO PRN (11:50)
--- NOTE | 2020-09-25 11:56 | OPERATIVE REPORT ---
Operative Report - General Procedure Date: 09/25/20 Planned Procedure: left supraclavicular lymph node excision Pre-Op Diagnosis: left neck lymphadenopathy Procedure Performed: left neck supraclavicular lymph node excision Post Op Diagnosis: left neck lymphadenopathy - Procedure Note Primary Surgeon: deon bey Anesthesia Technique: General LMA, Local Pathology: lymph node sent in rpi solution Estimated Blood Loss (mL): 0 Drain/Tube Type: Other (none) Indications: concern for cancer/ diagnosis Findings: 2 x 3 cm node removed Complications: none - Other Other Information/Narrative: The patient was properly identified brought to the operating room and placed in supine position. Laryngeal mask anesthesia was induced. She was repositioned in a modified Mathis's position. She was prepped and draped in a sterile fashion. Antibiotics were not given. The area was previously marked. A 3 cm incision was made in the direction of Brandi's lines directly over the palpable supraclavicular left neck lymph node. Dissection proceeded with a needle tip cutting current cautery. The platysma was divided. Flaps were carefully raised with Metzenbaum scissors. The lymph node was identified and retracted with the use of a 2-0 silk suture. The lymph node was carefully mobilized with combination of cautery and sharp dissection. The pedicle of the lymph node was clamped and tied with a 4-0 silk suture. Hemostasis was assured. The platysmas was then closed with a running 4-0 Vicryl suture. Buried interrupted subdermal 4-0 Vicryl sutures were then placed. Specimen was placed in RPI and sent to pathology. Skin was closed with a running 4-0 Monocryl subcuticular suture. Dressing was applied. She tolerated the procedure well was awakened and brought to recovery in good condition.
[2020-09-25 12:33] VITALS: BP 138/71
--- NOTE | 2020-09-25 15:04 | ANESTHESIA POST OP EVALUATION ---
Anesthesia Post Eval - Post Anesthesia Eval Vitals: Last Vital Signs Temp 36.7 C 09/25/20 12:30 Pulse 88 09/25/20 12:30 Resp 16 09/25/20 12:30 BP 138/71 H 09/25/20 12:30 Pulse Ox 97 09/25/20 12:30 CV Function Including HR & BP: Stable Pain Control: Satisfactory Nausea & Vomiting: Negative Mental Status: Baseline Respiratory Status: Airway Patent Hydration Status: Satisfactory Anesthesia Complications: None
== END 2020-09-25 09:02 | disposition home or self-care (01) ==
LOC: SDS 09:01
PROVIDERS: ATTEND Surgery
PROC: 07B20ZX Excision of Left Neck Lymphatic, Open Approach, Diagnostic (ICD-10-PCS; principal; 2020-09-25 10:00)
DX: C82.91 Follicular lymphoma, unspecified, lymph nodes of head, face, and neck (principal); R63.6 Underweight; Z68.1 Body mass index [BMI] 19.9 or less, adult; Z85.3 Personal history of malignant neoplasm of breast
CPT/HCPCS: 38510; 88184; 88185; 88307; 88341; 88342; 88360; J7120

== ENCOUNTER 2020-12-19 08:34 | Outpatient (CLI) | payer MEDICARE, OTHER ==
[2020-12-19 12:18] LABS: ALBUMIN 4.6 g/dL (3.2-5.5); ALBUMIN/GLOBULIN RATIO 2.1 (1.0-2.2); BILIRUBIN,TOTAL 0.7 mg/dL (0.2-1.0); CALCIUM 9.5 mg/dL (8.5-10.3); CREATININE 0.8 mg/dL (0.4-1.0); POTASSIUM 4.2 mmol/L (3.5-5.0); TOTAL PROTEIN 6.8 g/dL (6.7-8.2)
== END 2020-12-19 23:59 | disposition home or self-care (01) ==
LOC: LAB.WCP 08:34
PROVIDERS: ATTEND Physician Assistant Medical
DX: R10.9 Unspecified abdominal pain (principal); R22.1 Localized swelling, mass and lump, neck
CPT/HCPCS: 36415; 80053; 82565

== ENCOUNTER 2021-01-17 08:21 | Outpatient (CLI) | payer MEDICARE, OTHER ==
--- NOTE | 2021-01-17 09:27 | DEXA Report ---
PROCEDURE: Dexa Spine and/or Hip INDICATIONS: POST MENOPAUSAL TECHNIQUE: Dual energy x-ray absorptiometry (DXA) was performed on a [employer] System. Regions measur ed are the AP Spine, femoral neck, and if needed forearm. COMPARISON: 01/03/2019 FINDINGS: Lumbar Spine: Bone Mineral Density 1.116 g/cm/cm,T score -0.5, compared to -0.7 Left Hip: Bone Mineral Density 0.815 g/cm/cm,T score -1.5, compared to -1.4 Left Femoral Neck: Bone Mineral Density 0.798 g/cm/cm, T score -1.7, . -1.5 (T score greater or equal to -1.0: NORMAL) (T score from -1.1 to -2.4: OSTEOPENIA) (T score less than or equal to -2.5 to: OSTEOPOROSIS) Impression: Slight interval progression of osteopenia most severe in the left femoral neck. Patients with diagnosis of osteoporosis or osteopenia should have regular bone mineral density assess ment. For those eligible for Medicare, routine testing is allowed once every 2 years. Testing frequ ency can be increased for patients who have rapidly progressing disease or for those who are receivin g medical therapy to restore bone mass. Reviewed by: Lluvia Zaidi MD on 01/17/2021 9:26 AM PST Approved by: Lluvia Zaidi MD on 01/17/2021 9:26 AM PST Station ID: [id number]
== END 2021-01-17 08:22 | disposition home or self-care (01) ==
LOC: DI 08:21
PROVIDERS: ATTEND Physician Assistant Medical
DX: M85.89 Other specified disorders of bone density and structure, multiple sites (principal); Z78.0 Asymptomatic menopausal state

== ENCOUNTER 2021-03-26 14:44 | Emergency (ER) | payer MEDICARE, OTHER ==
[2021-03-26 15:27] LABS: BASOPHILS % (AUTO) 0.3 %; EOSINOPHILS % (AUTO) 0.3 %; HGB - HEMOGLOBIN 12.7 g/dL (12.0-16.0); LYMPHOCYTES # (AUTO) 0.6 10^3/uL (1.5-3.5); LYMPHOCYTES % (AUTO) 17.3 %; MEAN CORPUSCULAR HGB CONC 32.6 g/dL (32.0-36.0); MEAN CORPUSCULAR VOLUME 85.9 fL (81.0-99.0); MEAN PLATELET VOLUME 9.7 fL (7.9-10.8); MONOCYTES # (AUTO) 0.4 10^3/uL (0.0-1.0); MONOCYTES % (AUTO) 11.9 %; NEUTROPHILS # (AUTO) 2.5 10^3/uL (1.5-6.6); NEUTROPHILS % (AUTO) 69.9 %; PLT - PLATELET COUNT 195 10^3/uL (130-450); RED BLOOD COUNT 4.54 10^6/uL (4.20-5.40); RED CELL DISTRIBUTION WIDTH 13.4 % (12.0-15.0); WHITE BLOOD COUNT 3.5 x10^3/uL (4.8-10.8)
[2021-03-26 15:37] LABS: SLIDE REVIEW? Indicated
[2021-03-26 15:39] LABS: ALBUMIN 4.1 g/dL (3.2-5.5); ALBUMIN/GLOBULIN RATIO 1.3 (1.0-2.2); BILIRUBIN,TOTAL 0.4 mg/dL (0.2-1.0); CALCIUM 9.3 mg/dL (8.5-10.3); CREATININE 0.8 mg/dL (0.4-1.0); TOTAL PROTEIN 7.2 g/dL (6.7-8.2)
[2021-03-26 16:05] LABS: DIFFERENTIAL COMMENT MANUAL=AUTO DIFF; PLATELET ESTIMATE, MANUAL NORMAL (130-450,000) (NORMAL); PLATELET MORPHOLOGY NORMAL APPEARANCE (NORMAL); RBC MORPHOLOGY (MULTIPLE) 1+ ANISOCYTOSIS (NORMAL); WBC MORPHOLOGY (MULTIPLE) NORMAL APPEARANCE (NORMAL)
[2021-03-26 16:40] LABS: BILIRUBIN,URINE NEGATIVE (NEGATIVE); GLUCOSE, URINE (UA) NEGATIVE (NEGATIVE); KETONES,URINE (UA) 15 mg/dL (NEGATIVE); LEUKOCYTE ESTERASE, URINE TRACE (NEGATIVE); NITRITE,URINE NEGATIVE (NEGATIVE); OCCULT BLOOD,URINE NEGATIVE (NEGATIVE); PH,URINE 5.5 PH (5.0-7.5); PROTEIN,URINE NEGATIVE (NEGATIVE); UROBILINOGEN,URINE 0.2 (NORMAL) E.U./dL (NORMAL)
[2021-03-26 16:41] LABS: CLARITY,URINE CLEAR (CLEAR)
[2021-03-26 16:48] LABS: BACTERIA,URINE Rare /HPF (None Seen); RBC,URINE None Seen /HPF (0-5); SQUAMOUS EPITHELIAL CELL,UR FEW Squamous (<= Few)
[2021-03-26] MEDS ORDERED: IOVERSOL 320 100 ML VIAL IVP ONE ×2 (17:04→17:29)
--- NOTE | 2021-03-26 17:47 | CT Report ---
PROCEDURE: Abdomen/Pelvis W INDICATIONS: diffuse abdominal pain, h/o follicular lymphoma CONTRAST: IV CONTRAST: Optiray 320 ml: 100 PO CONTRAST: *NO PO CONTRAST TECHNIQUE: After the administration of intravenous contrast, 5 mm thick sections acquired from the diaphragms to the symphysis. 5 mm thick coronal and sagittal reformats were acquired. For radiation dose reducti on, the following was used: automated exposure control, adjustment of mA and/or kV according to lynne ent size. COMPARISON: December 09, 2020 FINDINGS: Inferior chest: 3.8 mm noncalcified nodule in the left lower lobe, unchanged. Bibasilar atelectasis. No focal consolidation, pleural effusion, or pneumothorax. No cardiomegaly or pericardial effusion. Gallbladder: The gallbladder is distended with a smooth thin wall. Biliary tree: No intra-or extrahepatic biliary ductal dilatation. Liver: The liver demonstrates normal enhancement, size, and contour. Scattered hypoattenuating lesion s are again seen, measuring up to 3.6 cm, likely reflecting cysts. Spleen: Normal enhancement, size and morphology is seen. Pancreas: No contour deforming mass or inflammatory change. Adrenals: Normal size without masses. Kidneys/ureters: Normal size and morphology. No solid masses or hydronephrosis. Vasculature: No evidence of aneurysm or other significant vascular pathology. Lymphatic system: Less prominent soft tissue attenuation about the aorta. GI/mesentery: No evidence of intestinal obstruction. Normal appearance of the appendix. Peritoneum/Retroperitoneum: No free intraperitoneal gas or large collection. Urinary bladder: The urinary bladder is distended with a smooth thin wall. Pelvic organs: No significant abnormality. Bones/soft tissues: No significant abnormality. Levocurvature of the lumbar spine. Multifocal degener ative change IMPRESSION: 1.Less prominent soft tissue attenuation about the aorta, likely reflecting response to therapy. Reviewed by: Ravindra Murrell MD on 03/26/2021 5:46 PM PST Approved by: Ravindra Murrell MD on 03/26/2021 5:46 PM PST Station ID: [id number]
[2021-03-26] MEDS ORDERED: cephALEXin 250 MG CAPSULE PO STA (18:13)
--- NOTE | 2021-03-26 18:16 | ED Physician Documentation ---
History of Present Illness - Stated complaint Stated Complaint: STOMACH AND BACK PX - Chief complaint Chief Complaint: Abd Pain - History obtained from History obtained from: Patient - History of Present Illness Timing: How many days ago (3) Pain level max: 5 Pain level now: 3 - Additonal information Additional information: 85-year-old female presents to the emergency department complaint of dysuria for the past several days. She states that she went to the walk-in clinic and was sent here for further evaluation. She states that this feels similar to prior UTIs. Has a history of follicular lymphoma. No fevers. No chills. No vomiting or diarrhea. She states that she had Covid symptoms on March 12, tested positive on March 13 but the symptoms have not resolved. Review of Systems Constitutional: denies: Fever, Chills Throat: denies: Sore throat Cardiac: denies: Chest pain / pressure Respiratory: denies: Cough GI: denies: Vomiting, Diarrhea : reports: Dysuria, Frequency, Hesitancy PD PAST MEDICAL HISTORY - Past Medical History Past Medical History: Yes Cardiovascular: High cholesterol Respiratory: None Endocrine/Autoimmune: None GI: None : Chronic bladder infection HEENT: None Musculoskeletal: Osteoporosis Derm: None - Past Surgical History General: Appendectomy /IDENTIFIER HORSE: Tubal ligation, Hysterectomy HEENT: Tonsil/Adenoidectomy - Present Medications Home Medications: Ambulatory Orders Medication Instructions Recorded Confirmed Biotin 2 cap PO DAILY 09/14/12 10/23/20 Cranberry Fruit [Cranberry] 400 mg PO DAILY 09/14/12 10/23/20 Lactobacillus Acidophilus 1 each PO DAILY 09/14/12 10/23/20 [Acidophilus Lactobacillus] Red Yeast Rice 09/25/20 Thera Tears 1 drops EACHEYE DAILY 09/25/20 11/07/20 cephALEXin [Keflex] 500 mg PO Q6H #20 cap 03/26/21 - Allergies Allergies/Adverse Reactions: Allergies Allergy/AdvReac Type Severity Reaction Status Date / Time Sulfa (Sulfonamide Allergy Severe Hives Verified 03/26/21 15:10 Antibiotics) morphine Allergy Itching Verified 03/26/21 15:10 - Social History Smoking Status: Never smoker PD ED PE NORMAL - Vitals Vital signs reviewed: Yes - General General: Alert and oriented X 3, No acute distress - HEENT HEENT: Moist mucous membranes - Neck Neck: Supple, no meningeal sign - Cardiac Cardiac: RRR - Respiratory Respiratory: No respiratory distress, Clear bilaterally - Abdomen Abdomen: Soft, Non distended, Other (Mild diffuse tenderness without peritoneal signs) - Back Back: No CVA TTP, No spinal TTP - Derm Derm: Warm and dry - Extremities Extremities: No edema, No calf tenderness / cord - Neuro Neuro: Alert and oriented X 3 Results - Vitals Vitals: Vital Signs - 24 hr 03/26/21 03/26/21 03/26/21 15:03 17:00 18:39 Temperature 36.6 C 37.2 C Heart Rate 98 94 100 Respiratory 15 20 Rate Blood Pressure 130/98 H 129/58 L 141/71 H O2 Saturation 99 96 98 Oxygen O2 Source Room air - Labs Labs: Laboratory Tests 03/26/21 03/26/21 03/26/21 15:21 15:21 16:25 WBC 3.5 L RBC 4.54 Hgb 12.7 Hct 39.0 MCV 85.9 MCH 28.0 MCHC 32.6 RDW 13.4 Plt Count 195 MPV 9.7 Neut # (Auto) 2.5 Lymph # (Auto) 0.6 L [place] # (Auto) 0.4 Eos # (Auto) 0.0 Baso # (Auto) 0.0 Absolute Nucleated RBC 0.00 Band Neuts % (Manual) Not Reportable Abnorm Lymph % (Manual) Not Reportable Nucleated RBC % 0.0 Neutrophils # (Manual) Not Reportable Lymphocytes # (Manual) Not Reportable Monocytes # (Manual) Not Reportable Eosinophils # (Manual) Not Reportable Basophils # (Manual) Not Reportable Differential Comment MANUAL=AUTO DIFF Manual Slide Review Indicated WBC Morphology NORMAL APPEARANCE Platelet Estimate NORMAL (130-450,000) Platelet Morphology NORMAL APPEARANCE RBC Morph Micro Appear 1+ ANISOCYTOSIS Sodium 135 Potassium 4.0 Chloride 96 L Carbon Dioxide 27 Anion Gap 12.0 BUN 13 Creatinine 0.8 Estimated GFR (MDRD) 69 L Glucose 107 H Calcium 9.3 Total Bilirubin 0.4 AST 21 ALT 13 Alkaline Phosphatase 60 Total Protein 7.2 Albumin 4.1 Globulin 3.1 Albumin/Globulin Ratio 1.3 Lipase 53 H Urine Color YELLOW Urine Clarity CLEAR Urine pH 5.5 Ur Specific [place] 1.025 Urine Protein NEGATIVE Urine Glucose (UA) NEGATIVE Urine Ketones 15 H Urine Occult Blood NEGATIVE Urine Nitrite NEGATIVE Urine Bilirubin NEGATIVE Urine Urobilinogen 0.2 (NORMAL) Ur Leukocyte Esterase TRACE H Urine RBC None Seen Urine WBC 11-25 H Ur Squamous Epith Cells FEW Squamous Urine Bacteria Rare Ur Microscopic Review INDICATED Urine Culture Comments INDICATED - Rads (name of study) CT abdomen pelvis Radiology: Final report received, EMP read contemporaneously, See rad report (1.Less prominent soft tissue attenuation about the aorta, likely reflecting response to therapy.) PD MEDICAL DECISION MAKING - ED course Complexity details: reviewed results, re-evaluated patient, considered differential, d/w patient ED course: 85-year-old female with what appears to be UTI. Will place on antibiotics for this. There was concern for intra-abdominal pain from at the walk-in clinic and patient was sent here for CT scan. She did have some abdominal tenderness, likely related to her follicular lymphoma. No acute findings on CT scan. No significant lab abnormalities. Patient is well-appearing, nontoxic. Afebrile. Patient counseled regarding signs and symptoms for which I believe and urgent re-evaluation would be necessary. Patient with good understanding of and agreement to plan and is comfortable going home at this time This document was made in part using voice recognition software. While efforts are made to proofread this document, sound alike and grammatical errors may occur. Departure - Departure Disposition: 01 Home, Self Care Clinical Impression: Urinary tract infection Qualifiers: Urinary tract infection type: acute cystitis Hematuria presence: without hemat uria Qualified Code(s): N30.00 - Acute cystitis without hematuria Condition: Good Instructions: ED UTI Cystitis Female Follow-Up: Gabby Rivera PA-C [Primary Care Provider] - Within 1 week Prescriptions: cephALEXin [Keflex] 500 mg PO Q6H #20 cap Comments: Your prescriptions were sent to [facility] in [place]. Take all antibiotics until gone. Return if you worsen. Discharge Date/Time: 03/26/21 18:41
[2021-03-26 18:41] VITALS: BP 141/71
== END 2021-03-26 18:41 | disposition home or self-care (01) ==
LOC: ED 14:44
DX: N30.00 Acute cystitis without hematuria (principal)
CPT/HCPCS: 36415; 74177; 80053; 81001; 83690; 85025; 87086; 99282; 99284; A9270; Q9967; 81003; 87181

== ENCOUNTER 2021-11-04 13:00 | Outpatient (CLI) | payer MEDICARE, OTHER ==
--- NOTE | 2021-11-04 15:27 | XRAY Report ---
PROCEDURE: Lumbar Spine 2 View INDICATIONS: LUMBAGO WITH SCIATICA TECHNIQUE: 2 views of the lumbar spine were acquired. COMPARISON: None. FINDINGS: Bones: Normal bone mineralization. Vertebral body height is maintained. Grade 1 anterior spinal listh esis noted L4-5. Degenerative disc space narrowing and hypertrophic facet joints noted throughout the exam particularly lower lumbar spine. Soft tissues: Overlying bowel gas pattern is normal. No suspicious soft tissue calcifications. 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
--- NOTE | 2021-11-04 15:28 | XRAY Report ---
PROCEDURE: Hips 2V BILAT INDICATIONS: LUMBAGO WITH SCIATICA TECHNIQUE: 2 views of the hip were acquired. COMPARISON: None FINDINGS: Bones: No fractures or dislocations. No suspicious bony lesions. The visualized pelvic ring appear s intact. Mild bilateral hip joint space narrowing. Focal scarring sclerosis in the left femoral head measures 1 cm degenerative changes noted lower lumbar spine Soft tissues: No suspicious soft tissue calcifications or masses. IMPRESSION: Mild bilateral hip joint space narrowing. Small left proximal femoral bone island or enostosis Lower lumbar spine degenerative changes Reviewed by: Xavier Delgado MD on 11/04/2021 2:27 PM AKANA MARIA Approved by: Xavier Delgado MD on 11/04/2021 2:27 PM AKDT Station ID: [id number]
== END 2021-11-04 13:01 | disposition home or self-care (01) ==
LOC: DI.N 13:00
PROVIDERS: ATTEND Nurse Practitioner Family
DX: M16.0 Bilateral primary osteoarthritis of hip (principal); M47.816 Spondylosis without myelopathy or radiculopathy, lumbar region; M43.16 Spondylolisthesis, lumbar region

== ENCOUNTER 2022-04-14 15:00 | Outpatient (CLI) | payer MEDICARE, OTHER | END 2022-04-14 15:15 | disposition home or self-care (01) | LOC: LAB.N 15:00 | PROVIDERS: ATTEND Registered Nurse | DX: R30.0 Dysuria (principal) | CPT/HCPCS: 87086 ==

== ENCOUNTER 2022-07-13 15:00 | Outpatient (CLI) | payer MEDICARE, OTHER | END 2022-07-13 15:15 | disposition home or self-care (01) | LOC: LAB.N 15:00 | PROVIDERS: ATTEND Physician Assistant | DX: L02.511 Cutaneous abscess of right hand (principal) | CPT/HCPCS: 87070; 87181; 87205 ==

== ENCOUNTER 2022-07-30 08:34 | Outpatient (CLI) | payer MEDICARE, OTHER ==
[2022-07-30 12:31] LABS: ALBUMIN 4.3 g/dL (3.2-5.5); ALBUMIN/GLOBULIN RATIO 1.4 (1.0-2.2); ALKALINE PHOSPHATASE 56 IU/L (42-121); ALT ALANINE AMINOTRANSFERASE 30 IU/L (10-60); AST ASPARTATE AMINOTRANSFERASE 32 IU/L (10-42); BILIRUBIN,TOTAL 0.7 mg/dL (0.2-1.0); BUN - BLOOD UREA NITROGEN 11 mg/dL (6-20); CALCIUM 8.7 mg/dL (8.5-10.3); CARBON DIOXIDE - CO2 30 mmol/L (21-32); CHLORIDE 106 mmol/L (101-111); CHOL/HDL RATIO 3.1 (<4.4); CHOLESTEROL 256 mg/dL; CREATININE 0.8 mg/dL (0.4-1.0); GFR - MDRD 68 (>89); GLUCOSE 92 mg/dL (70-100); HDL CHOLESTEROL 82 mg/dL; LDL CHOLESTEROL,CALCULATED 152 mg/dL; LDL/HDL RATIO 1.9 (<4.4); SODIUM 141 mmol/L (135-145); TOTAL PROTEIN 7.3 g/dL (6.7-8.2); TRIGLYCERIDES 111 mg/dL; VLDL CHOLESTEROL 22 mg/dL
== END 2022-07-30 08:35 | disposition home or self-care (01) ==
LOC: LAB.N 08:34
PROVIDERS: ATTEND Physician Assistant Medical
DX: E78.5 Hyperlipidemia, unspecified (principal)
CPT/HCPCS: 36415; 80053; 80061; 83721

== ENCOUNTER 2023-01-18 14:19 | Outpatient (CLI) | payer MEDICARE, OTHER ==
--- NOTE | 2023-01-19 14:07 | XRAY Report ---
PROCEDURE: Knee 2 View RT INDICATIONS: RIGHT KNEE ARTHRITIS TECHNIQUE: 2 views of the knee(s) were acquired. COMPARISON: X-ray knee 04/23/2014 FINDINGS: Bones: No fractures or dislocations. No suspicious bony lesions. Moderate medial and mild to mode rate lateral patellofemoral compartment narrowing. Chondrocalcinosis is present. No erosions. Minimal periarticular osteophytes. Soft tissues: No knee joint effusion. No suspicious soft tissue calcifications or masses. IMPRESSION: Tricompartmental arthritic change most severe medially. Reviewed by: Lluvia Zaidi MD on 01/19/2023 2:06 PM PST Approved by: Lluvia Zaidi MD on 01/19/2023 2:06 PM [facility] Station ID: [id number]
== END 2023-01-18 14:20 | disposition home or self-care (01) ==
LOC: DI 14:19
PROVIDERS: ATTEND Family Medicine
DX: M17.11 Unilateral primary osteoarthritis, right knee (principal)

== ENCOUNTER 2023-03-18 15:07 | Outpatient (CLI) | payer MEDICARE, OTHER ==
--- NOTE | 2023-03-19 12:05 | Mammography Report ---
BILATERAL DIGITAL SCREENING MAMMOGRAM: 03/18/2023 CLINICAL: Routine screening. Personal history of right breast cancer. Comparison is made to exams dated: 03/18/2020 mammogram, 11/02/2018 mammogram, 10/29/2017 mammogram, 10/09 mammogram, 03/15/2015 mammogram, and 02/27/2014 mammogram - [facility]. Both breasts are heterogeneously dense, which may obscure small masses (category c / 51-75% glandular tissue). There are benign post operative findings in the right breast. No significant masses, calcifications, or other findings are seen in either breast. There has been no significant interval change. IMPRESSION: BENIGN There is no mammographic evidence of malignancy. A 1 year screening mammogram is recommended. This exam was interpreted at Station ID: [id number]. NOTE: For mammograms, a report in lay terms will be sent to the patient. Approximately 15% of breast malignancies will not be visualized mammographically. In the management of a palpable breast mass, a negative mammogram must not discourage biopsy of a clinically suspicious lesion. Electronically Signed By: David newman/regulo:03/19/2023 07:53:52 letter sent: No_Letter ACR BI-RADS Category 2: Benign Finding(s) 3342F PARENCHYMAL PATTERN: (D) - The breast(s) demonstrate(s) heterogeneously dense fibroglandular gerald hussein. BI-RADS CATEGORY: (2) - 2 Mammogram [id number] 1 year screening LATERALITY: (B)
== END 2023-03-18 15:08 | disposition home or self-care (01) ==
LOC: DI.N 15:07
DX: Z12.31 Encounter for screening mammogram for malignant neoplasm of breast (principal)

== ENCOUNTER 2023-03-23 08:00 | Outpatient (CLI) | payer MEDICARE, OTHER | END 2023-03-23 08:01 | disposition home or self-care (01) | LOC: LAB.N 08:00 | PROVIDERS: ATTEND Family Medicine | DX: R07.0 Pain in throat (principal); R51.9 Headache, unspecified; R50.9 Fever, unspecified ==

== ENCOUNTER 2023-04-08 08:23 | Outpatient (CLI) | payer MEDICARE, OTHER ==
--- NOTE | 2023-04-08 09:40 | DEXA Report ---
PROCEDURE: Dexa Spine and/or Hip INDICATIONS: POST MENOPAUSAL TECHNIQUE: Dual energy x-ray absorptiometry (DXA) was performed on a V Wave System. Regions measur ed are the AP Spine, femoral neck, and if needed forearm. COMPARISON: DEXA on 01/17/2021 FINDINGS: Lumbar Spine L1-L3: Bone Mineral Density: 1.118 g/cm/cm,T score: -0.4. There has been no statistically significant fuller e in bone mineral density since the prior study. Left Femoral Neck: Bone Mineral Density: 0.785 g/cm/cm, T score: -1.8. Left Hip: Bone Mineral Density: 0.796 g/cm/cm,T score: -1.7. There has been no statistically significant change in bone mineral density since the prior study. (T score greater or equal to -1.0: NORMAL) (T score from -1.1 to -2.4: OSTEOPENIA) (T score less than or equal to -2.5 to: OSTEOPOROSIS) Impression: By WHO criteria, this patient has low bone density (osteopenia). No statistical interval change in bone mineral density of the lumbar spine. No statistical interval c hange in bone mineral density of the hip. Patients with diagnosis of osteoporosis or osteopenia should have regular bone mineral density assess ment. For those eligible for Medicare, routine testing is allowed once every 2 years. Testing frequ ency can be increased for patients who have rapidly progressing disease or for those who are receivin g medical therapy to restore bone mass. Reviewed by: Maye Grimes MD on 04/08/2023 9:39 AM PST Approved by: Maye Grimes MD on 04/08/2023 9:39 AM PST Station ID: [id number]
== END 2023-04-08 08:24 | disposition home or self-care (01) ==
LOC: MAC.INF 08:23
PROVIDERS: ATTEND Physician Assistant Medical
DX: Z78.0 Asymptomatic menopausal state (principal); M85.89 Other specified disorders of bone density and structure, multiple sites